=== PATIENT | female | born 1945 | race American Indian/Alaskan Native ===

== ENCOUNTER 2018-11-27 14:07 | Emergency (ER) | payer MEDICARE, MEDICAID ==
--- NOTE | 2018-11-27 18:25 | EDM.PDOCBH ---
<Christina Macias - Last Filed: 11/27/18 18:19> ED HPI GENERAL MEDICAL PROBLEM - General Chief Complaint: Behavioral/Psych Stated Complaint: MEDICAL VIA [facility] Time Seen by Provider: 11/27/18 14:20 Source of Information: Reports: Patient History Limitations: Reports: No Limitations - History of Present Illness INITIAL COMMENTS - FREE TEXT/NARRATIVE: pt was at the [facility] and she is committed there. Yesterday there was a window on second floor that was open and she was trying to get out of the window. The pt states that she has her last child who has Cancer and she wants to go home so she can be with him. She stated today that if she didn,t get to go home she was going to kill herself. The home brought her in with the police involved. The pt states that she has lost her other children to and she definitely wants to be with him Onset: Other (pt has been making threats. She felt like she was only committed for 3 monthes. ) Duration: Day(s): Location: Reports: Generalized Associated Symptoms: Reports: Other ( according to the court order she has dementia ) - Related Data Allergies Allergy/AdvReac Type Severity Reaction Status Date / Time No Known Allergies Allergy Verified 11/27/18 14:17 Home Meds: Home Meds Aspirin 81 mg PO DAILY 11/27/18 [History] Bumetanide 1 mg PO DAILY 11/27/18 [History] Ca Carbonate/Vitamin D3/Vit K [Calcium + D Soft Chewable Tab] 1 tab PO BID 11/27 [History] Carvedilol [Coreg] 3.125 mg PO BID 11/27/18 [History] Clopidogrel [Plavix] 75 mg PO DAILY 11/27/18 [History] Donepezil [Aricept] 10 mg PO DAILY 11/27/18 [History] Enalapril [Vasotec] 2.5 mg PO DAILY 11/27/18 [History] Ferrous Gluconate 324 mg PO DAILY 11/27/18 [History] Insulin Aspart [NovoLOG] 0 unit WITHMEALSANDBED 11/27/18 [History] Insulin Detemir [Levemir Flextouch] 100 unit SQ DAILY 11/27/18 [History] Isosorbide Mononitrate [Imdur] 30 mg PO DAILY 11/27/18 [History] Pantoprazole Sodium [Protonix] 40 mg PO DAILY 11/27/18 [History] Sucralfate 1 gm PO QID 11/27/18 [History] Venlafaxine HCl [Venlafaxine ER] 150 mg PO DAILY 11/27/18 [History] atorvaSTATin [Lipitor] 80 mg PO BEDTIME 11/27/18 [History] cloNIDine [Catapres-TTS 1] 1 each TD DAILY 11/27/18 [History] Past Medical History Cardiovascular History: Reports: CAD, High Cholesterol, Hypertension, [place] Respiratory History: Reports: Other (See Below) Other Respiratory History: dyspnea Gastrointestinal History: Reports: GERD Genitourinary History: Reports: Other (See Below) Other Genitourinary History: chronic kidney disease Musculoskeletal History: Reports: Osteoarthritis Neurological History: Reports: Other (See Below) Other Neuro History: cerebrovascular disease, dementia Psychiatric History: Reports: Anxiety, Depression, PTSD Endocrine/Metabolic History: Reports: Diabetes, Type II, Hypoparathyroidism Hematologic History: Reports: B12 Deficiency - Past Surgical History Cardiovascular Surgical History: Reports: Other (See Below) Other Cardiovascular Surgeries/Procedures: stents x 2. Musculoskeletal Surgical History: Reports: Other (See Below) Other Musculoskeletal Surgeries/Procedures:: knee surgery Social & Family History - Tobacco Use Smoking Status *Q: Current Every Day Smoker Years of Tobacco use: 50 Packs/Tins Daily: 0.5 - Recreational Drug Use Recreational Drug Use: No ED ROS GENERAL - Review of Systems Review Of Systems: See Below Constitutional: Reports: No Symptoms HEENT: Reports: No Symptoms Respiratory: Reports: No Symptoms Cardiovascular: Reports: No Symptoms Endocrine: Reports: No Symptoms GI/Abdominal: Reports: No Symptoms : Reports: No Symptoms Musculoskeletal: Reports: No Symptoms Skin: Reports: No Symptoms Neurological: Reports: Other (pt appears to be able to give a fairly clear history. ) Psychiatric: Reports: Anxiety, Other (pt states that she is not suicidal. ) ED EXAM, BEHAVIORAL HEALTH - Physical Exam Exam: See Below Text/Narrative:: pt is alert pt who walks well. She is able to carry on a conversation. She is very cncerned about her son who was diagnosed with Cancer. Exam Limited By: No Limitations General Appearance: Alert, No Apparent Distress Ears: Normal TMs Nose: Normal Inspection Throat/Mouth: Normal Inspection Head: Atraumatic Neck: Normal Inspection Respiratory/Chest: No Respiratory Distress Cardiovascular: Regular Rate, Rhythm GI/Abdominal: Soft, Non-Tender (Female) Exam: Deferred Rectal (Female) Exam: Deferred Back Exam: Normal Inspection Extremities: Normal Inspection Neurological: Alert, Other (pt is able to give a good history. ) Psychiatric: Alert, Normal Cognition, Other (pt did try to leave. He states she is trying to get to [place]. ) COURSE, BEHAVIORAL HEALTH COMP - Course Vital Signs: Last Vital Signs Temp 36.9 C 11/27/18 14:11 Pulse 77 11/27/18 14:11 Resp 22 H 11/27/18 14:11 BP 113/56 L 11/27/18 14:11 Pulse Ox 100 11/27/18 14:11 Orders, Labs, Meds: Laboratory Tests 11/27/18 11/27/18 11/27/18 Range/Units 16:27 16:27 16:27 WBC 6.7 (4.5-11.0) K/uL RBC 4.30 (3.30-5.50) M/uL Hgb 11.2 L (12.0-15.0) g/dL Hct 36.9 (36.0-48.0) % MCV 86 (80-98) fL MCH 26 L (27-31) pg MCHC 30 L (32-36) % Plt Count 297 (150-400) K/uL Neut % (Auto) 61 (36-66) % Lymph % (Auto) 30 (24-44) % [place]row % (Auto) 8 H (2-6) % Eos % (Auto) 2 (2-4) % Baso % (Auto) 0 (0-1) % Sodium 139 L (140-148) mmol/L Potassium 4.4 (3.6-5.2) mmol/L Chloride 102 (100-108) mmol/L Carbon Dioxide 28 (21-32) mmol/L Anion Gap 13.4 (5.0-14.0) mmol/L BUN 43 H (7-18) mg/dL Creatinine 1.8 H (0.6-1.0) mg/dL Est Cr Clr Drug Dosing 23.37 mL/min Estimated GFR (MDRD) 28 L (>60) Glucose 215 H (74-106) mg/dL Calcium 8.9 (8.5-10.1) mg/dL Total Bilirubin 0.2 (0.2-1.0) mg/dL AST 26 (15-37) U/L ALT 39 (12-78) U/L Alkaline Phosphatase 133 H (46-116) U/L Total Protein 6.6 (6.4-8.2) g/dL Albumin 3.3 L (3.4-5.0) g/dL Globulin 3.3 (2.3-3.5) g/dL Albumin/Globulin Ratio 1.0 L (1.2-2.2) Urine Color Yellow Urine Appearance Clear Urine pH 6.0 (4.5-8.0) Ur Specific [place] 1.015 (1.008-1.030) Urine Protein Negative (NEGATIVE) mg/dL Urine Glucose (UA) Normal (NEGATIVE) mg/dL Urine Ketones Negative (NEGATIVE) mg/dL Urine Occult Blood Negative (NEGATIVE) Urine Nitrite Negative (NEGATIVE) Urine Bilirubin Negative (NEGATIVE) Urine Urobilinogen Normal (NORMAL) mg/dL Ur Leukocyte Esterase Negative (NEGATIVE) Urine RBC Not seen (0-5) Urine WBC 0-5 (0-5) Ur Epithelial Cells Rare Amorphous Sediment Not seen Urine Bacteria Few Urine Mucus Not seen Medical Clearance: 11/27/18 18:30 pt has a creatnine of 1.8 and a low GFR. She has a clear urine. Her bs is 215. Departure - Departure Disposition: Home, Self-Care 01 Clinical Impression: Medical non-compliance - Discharge Information Referrals: PCP,None [Primary Care Provider] - Forms: ED Department Discharge Additional Instructions: Continue current cares. Needs to get connected with a elementary school social worker. Crisis will follow through with this case. <Cosme Palmer G - Last Filed: 11/27/18 19:35> COURSE, BEHAVIORAL HEALTH COMP - Course Discharge vs Psych Eval/Treatment:: 11/27/18 19:33 Crisis feels patient is not a risk for suicide. [facility] to return [facility] the [facility]. Departure - Departure Time of Disposition: 19:33 Condition: Good - Discharge Information *PRESCRIPTION DRUG MONITORING PROGRAM REVIEWED*: No *COPY OF PRESCRIPTION DRUG MONITORING REPORT IN PATIENT LAY: No
== END 2018-11-27 20:50 | disposition home or self-care (01) ==
LOC: JP.ED 14:07
DX: Z91.19 Patient's noncompliance with other medical treatment and regimen (principal); E78.00 Pure hypercholesterolemia, unspecified; I25.10 Atherosclerotic heart disease of native coronary artery without angina pectoris; I25.2 Old myocardial infarction; K21.9 Gastro-esophageal reflux disease without esophagitis; E11.9 Type 2 diabetes mellitus without complications; F41.9 Anxiety disorder, unspecified; F32.9 Major depressive disorder, single episode, unspecified; F17.210 Nicotine dependence, cigarettes, uncomplicated; Z79.82 Long term (current) use of aspirin; Z79.899 Other long term (current) drug therapy; Z79.4 Long term (current) use of insulin
CPT/HCPCS: 36415; 80053; 81001; 85025; 99285

== ENCOUNTER 2018-11-28 18:17 | Emergency (ER) | payer MEDICARE, MEDICAID ==
--- NOTE | 2018-11-28 19:00 | EDM.PDOCBH ---
ED HPI GENERAL MEDICAL PROBLEM - General Chief Complaint: Behavioral/Psych Stated Complaint: EVAL Time Seen by Provider: 11/28/18 18:39 Source of Information: Reports: Patient, Old Records, RN Notes Reviewed History Limitations: Reports: No Limitations - History of Present Illness INITIAL COMMENTS - FREE TEXT/NARRATIVE: 73-year-old female presents to the emergency department today for evaluation, she was in the emergency department last night valuated by Dr. Macias for suicidal thoughts please see her note for details. Today she had difficulty at the long term became very aggressive she is on a court order from [facility] her main issue is that the last of her surviving children has recently been diagnosed with cancer and she would like to go spend time with them. [facility] has accepted her she is transported to the emergency department for evaluation and transport. At this time she has no complaints and after a discussion with her she is willing to go to this facility for further evaluation - Related Data Allergies Allergy/AdvReac Type Severity Reaction Status Date / Time No Known Allergies Allergy Verified 11/27/18 14:17 Home Meds: Home Meds Aspirin 81 mg PO DAILY 11/27/18 [History] Bumetanide 1 mg PO DAILY 11/27/18 [History] Ca Carbonate/Vitamin D3/Vit K [Calcium + D Soft Chewable Tab] 1 tab PO BID 11/27 [History] Carvedilol [Coreg] 3.125 mg PO BID 11/27/18 [History] Clopidogrel [Plavix] 75 mg PO DAILY 11/27/18 [History] Donepezil [Aricept] 10 mg PO DAILY 11/27/18 [History] Enalapril [Vasotec] 2.5 mg PO DAILY 11/27/18 [History] Ferrous Gluconate 324 mg PO DAILY 11/27/18 [History] Insulin Aspart [NovoLOG] 0 unit WITHMEALSANDBED 11/27/18 [History] Insulin Detemir [Levemir Flextouch] 100 unit SQ DAILY 11/27/18 [History] Isosorbide Mononitrate [Imdur] 30 mg PO DAILY 11/27/18 [History] Pantoprazole Sodium [Protonix] 40 mg PO DAILY 11/27/18 [History] Sucralfate 1 gm PO QID 11/27/18 [History] Venlafaxine HCl [Venlafaxine ER] 150 mg PO DAILY 11/27/18 [History] atorvaSTATin [Lipitor] 80 mg PO BEDTIME 11/27/18 [History] cloNIDine [Catapres-TTS 1] 1 each TD DAILY 11/27/18 [History] Past Medical History Cardiovascular History: Reports: CAD, High Cholesterol, Hypertension, [place] Respiratory History: Reports: Other (See Below) Other Respiratory History: dyspnea Gastrointestinal History: Reports: GERD Genitourinary History: Reports: Other (See Below) Other Genitourinary History: chronic kidney disease Musculoskeletal History: Reports: Osteoarthritis Neurological History: Reports: Other (See Below) Other Neuro History: cerebrovascular disease, dementia Psychiatric History: Reports: Anxiety, Depression, PTSD Endocrine/Metabolic History: Reports: Diabetes, Type II, Hypoparathyroidism Hematologic History: Reports: B12 Deficiency - Past Surgical History Cardiovascular Surgical History: Reports: Other (See Below) Other Cardiovascular Surgeries/Procedures: stents x 2. Musculoskeletal Surgical History: Reports: Other (See Below) Other Musculoskeletal Surgeries/Procedures:: knee surgery Social & Family History - Tobacco Use Smoking Status *Q: Current Every Day Smoker ED ROS GENERAL - Review of Systems Review Of Systems: See Below Constitutional: Reports: No Symptoms HEENT: Reports: No Symptoms Respiratory: Reports: No Symptoms Cardiovascular: Reports: No Symptoms GI/Abdominal: Reports: No Symptoms : Reports: No Symptoms ED EXAM, BEHAVIORAL HEALTH - Physical Exam Exam: See Below Exam Limited By: No Limitations General Appearance: Alert, WD/WN, No Apparent Distress Respiratory/Chest: No Respiratory Distress, No Accessory Muscle Use, Chest Non- Tender, Rhonchi Cardiovascular: Regular Rate, Rhythm, No Murmur Departure - Departure Time of Disposition: 19:00 Disposition: DC/Tfer to Psych Hosp/Unit 65 Condition: Poor Clinical Impression: Aggressive behavior - Discharge Information Referrals: PCP,None [Primary Care Provider] - - Assessment/Plan Plan: Assessment Acuity = acute Site and laterality = aggressive behavior complicated in a patient with history of dementia Etiology = unknown etiology Manifestations = none Location of injury = Home Lab values = no lab work done today please see lab work from yesterday for details Plan She'll be transported via EMS ground to [facility] This note was dictated using [employer] voice recognition software please call with any questions on syntax or grammar.
== END 2018-11-28 20:50 ==
LOC: JP.ED 18:17
DX: R45.6 Violent behavior (principal); F03.90 Unspecified dementia, unspecified severity, without behavioral disturbance, psychotic disturbance, mood disturbance, and anxiety; I12.9 Hypertensive chronic kidney disease with stage 1 through stage 4 chronic kidney disease, or unspecified chronic kidney disease; E11.22 Type 2 diabetes mellitus with diabetic chronic kidney disease; N18.9 Chronic kidney disease, unspecified; E78.00 Pure hypercholesterolemia, unspecified; I25.10 Atherosclerotic heart disease of native coronary artery without angina pectoris; K21.9 Gastro-esophageal reflux disease without esophagitis; F41.9 Anxiety disorder, unspecified; F32.9 Major depressive disorder, single episode, unspecified; E20.9 Hypoparathyroidism, unspecified; Z79.4 Long term (current) use of insulin; Z79.899 Other long term (current) drug therapy; Z79.82 Long term (current) use of aspirin
CPT/HCPCS: 99285

== ENCOUNTER 2019-03-25 15:56 | Emergency (ER) | payer MEDICARE, MEDICAID ==
[2019-03-25] MEDS ORDERED: Nicotine 21 MG/24 Hr Patch TRDERM ONE (16:57)
--- NOTE | 2019-03-25 17:00 | EDM.PDOCBH ---
<OfficerJono - Last Filed: 03/25/19 16:57> ED HPI GENERAL MEDICAL PROBLEM - General Chief Complaint: Behavioral/Psych Stated Complaint: PSYCH EVAL PER LAW ENFORCEMENT Time Seen by Provider: 03/25/19 16:56 Source of Information: Reports: Patient, Police, RN Notes Reviewed History Limitations: Reports: No Limitations - History of Present Illness INITIAL COMMENTS - FREE TEXT/NARRATIVE: 74-year-old female presents emergency department today for psychiatric evaluation. She is court ordered to be in a memory care unit as she does have a moments of clarity followed by periods of aggressive behavior secondary to her dementia. She had an event today where she became aggressive with the staff was throwing silverware and dishes around had taken a butter knife and said she was going to harm herself. She is calm and cooperative at this time she admits that she was mad because she wanted to go home and visit her son she did visit with her son yesterday however because she is court ordered she cannot leave the facility and she became very upset. At this time the [facility] care facility will not take her back because she has displayed aggression towards the staff. denies Pain Score (Numeric/FACES): 0 - Related Data Allergies Allergy/AdvReac Type Severity Reaction Status Date / Time No Known Allergies Allergy Verified 03/25/19 16:22 Home Meds: Home Meds Aspirin 81 mg PO 0800 11/27/18 [History] atorvaSTATin [Lipitor] 80 mg PO 199911/27/18 [History] Citalopram [Citalopram HBr] 30 mg PO 0803/25/19 [History] Gabapentin [Neurontin] 300 mg PO 0800,1400,199903/25/19 [History] Carman Carbonate 600 mg PO 199903/25/19 [History] Meloxicam [Mobic] 7.5 mg PO 0800 03/25/19 [History] Mirtazapine [Remeron] 30 mg PO 199903/25/19 [History] Ranitidine HCl [Ranitidine] 150 mg PO 0800,199903/25/19 [History] chlorproMAZINE HCl [Chlorpromazine HCl] 50 mg PO 199903/25/19 [History] glipiZIDE [Glipizide ER] 5 mg PO 0800 03/25/19 [History] metFORMIN [Glucophage] 500 mg PO BIDMEALS 03/25/19 [History] traZODone 100 mg PO 199903/25/19 [History] Past Medical History Cardiovascular History: Reports: CAD, High Cholesterol, Hypertension, [place] Respiratory History: Reports: Other (See Below) Other Respiratory History: dyspnea Gastrointestinal History: Reports: GERD Genitourinary History: Reports: Other (See Below) Other Genitourinary History: chronic kidney disease [employer] History: Reports: Musculoskeletal History: Reports: Osteoarthritis Neurological History: Reports: Other (See Below) Other Neuro History: cerebrovascular disease, dementia Psychiatric History: Reports: Anxiety, Depression, PTSD Endocrine/Metabolic History: Reports: Diabetes, Type II, Hypoparathyroidism Hematologic History: Reports: B12 Deficiency - Infectious Disease History Infectious Disease History: Reports: Chicken Pox - Past Surgical History Cardiovascular Surgical History: Reports: Other (See Below) Other Cardiovascular Surgeries/Procedures: stents x 2. Musculoskeletal Surgical History: Reports: Other (See Below) Other Musculoskeletal Surgeries/Procedures:: knee surgery Social & Family History - Tobacco Use Smoking Status *Q: Current Every Day Smoker Years of Tobacco use: 65 Packs/Tins Daily: 0.2 Used Tobacco, but Quit: No Second Hand Smoke Exposure: Yes - Caffeine Use Caffeine Use: Reports: Coffee, Soda - Recreational Drug Use Recreational Drug Use: No ED ROS GENERAL - Review of Systems Review Of Systems: See Below Constitutional: Reports: No Symptoms HEENT: Reports: No Symptoms Respiratory: Reports: No Symptoms Cardiovascular: Reports: No Symptoms GI/Abdominal: Reports: No Symptoms : Reports: No Symptoms ED EXAM, BEHAVIORAL HEALTH - Physical Exam Exam: See Below Text/Narrative:: Orientated to person place and time, appropriately dressed, well groomed, memory to recent and remote events intact, good attention and concentration, speech is of adequate rate tone and volume, good fund of knowledge, language is appropriate, Mood and affect are euthymic, no pressured thoughts, denies suicidal ideation, denies homicidal ideation, no hallucinations visual or auditory, poor judgment, poor insight Exam Limited By: No Limitations General Appearance: Alert, WD/WN, No Apparent Distress Respiratory/Chest: No Respiratory Distress, Lungs Clear, Normal Breath Sounds, No Accessory Muscle Use, Chest Non-Tender GI/Abdominal: Non-Tender, No Abnormal Bruit COURSE, BEHAVIORAL HEALTH COMP - Course Vital Signs: Last Vital Signs Temp 35.7 C 09/20/19 11:20 Pulse 79 03/27/19 11:20 Resp 20 03/27/19 11:20 BP 146/75 H 03/27/19 11:20 Pulse Ox 97 03/27/19 11:20 Orders, Labs, Meds: Active Orders 24 hr Category Date Time Status Communication Order [RC] ROUTINE Care 03/26/19 20:18 Active POC Glucose [Blood Glucose Check, Bedside] [] ONETIME Care 03/26/19 20:17 Active Calcium Carbonate [Tums] Med 03/26/19 21:08 Active 500 mg PO Q2H PRN Carvedilol [Coreg] Med 03/26/19 21:15 Active 3.125 mg PO BID DULoxetine [Cymbalta] Med 03/27/19 21:00 Active 20 mg PO BEDTIME Donepezil [Aricept] Med 03/27/19 21:00 Active 10 mg PO BEDTIME Mirtazapine [Remeron] Med 03/26/19 21:00 Active 30 mg PO BEDTIME Nicotine [Habitrol] Med 03/26/19 20:00 Active 21 mg TRDERM DAILY Ranitidine [Zantac] Med 03/26/19 21:00 Active 150 mg PO BEDTIME Sucralfate [Carafate] Med 03/26/19 21:14 Active 1 gm PO QIDACANDBED metFORMIN [Glucophage] Med 03/26/19 20:00 Active 500 mg PO BIDMEALS Medication Orders Calcium Carbonate/Glycine (Tums) 500 mg PO Q2H PRN PRN Reason: Indigestion Carvedilol (Coreg) 3.125 mg PO BID [facility] Last Admin: 03/27/19 11:16 Dose: 3.125 mg Admin: 03/26/19 21:38 Dose: 3.125 mg Donepezil HCl (Aricept) 10 mg PO BEDTIME ALBA Duloxetine HCl (Cymbalta) 20 mg PO BEDTIME [facility] Metformin HCl (Glucophage) 500 mg PO BIDMEALS [facility] Last Admin: 03/27/19 11:16 Dose: 500 mg Admin: 03/26/19 21:28 Dose: 500 mg Mirtazapine (Remeron) 30 mg PO BEDTIME [facility] Last Admin: 03/26/19 21:31 Dose: 30 mg Nicotine (Habitrol) 21 mg TRDERM DAILY [facility] Last Admin: 03/27/19 11:19 Dose: 21 mg Admin: 03/26/19 21:36 Dose: 21 mg Ranitidine HCl (Zantac) 150 mg PO BEDTIME [facility] Last Admin: 03/26/19 21:50 Dose: 150 mg Sucralfate (Carafate) 1 gm PO QIDACANDBED [facility] Last Admin: 03/27/19 11:19 Dose: 1 gm Admin: 03/27/19 11:19 Dose: Not Given Admin: 03/26/19 21:40 Dose: 1 gm Laboratory Tests 03/25/19 Range/Units 16:57 Urine Color Yellow (YELLOW) Urine Appearance Clear (CLEAR) Urine pH 6.5 (5.0-8.0) Ur Specific [place] 1.010 (1.008-1.030) Urine Protein Negative (NEGATIVE) mg/dL Urine Glucose (UA) Negative (NEGATIVE) mg/dL Urine Ketones Negative (NEGATIVE) mg/dL Urine Occult Blood Trace-intact H (NEGATIVE) Urine Nitrite Negative (NEGATIVE) Urine Bilirubin Negative (NEGATIVE) Urine Urobilinogen 0.2 (0.2-1.0) EU/dL Ur Leukocyte Esterase Negative (NEGATIVE) Urine RBC 0-5 (0-5) Urine WBC 0-5 (0-5) Ur Epithelial Cells Rare Amorphous Sediment Not seen Urine Bacteria Moderate Urine Mucus Not seen Medications Generic Name Dose Route Start Last Admin Trade Name Freq PRN Reason Stop Dose Admin Calcium Carbonate/Glycine 500 mg 03/26/19 21:08 Tums PO Q2H PRN Indigestion Carvedilol 3.125 mg 03/26/19 21:15 03/27/19 11:16 Coreg PO 3.125 mg BID [facility] Administration Donepezil HCl 10 mg 03/27/19 21:00 Aricept PO BEDTIME ALBA Duloxetine HCl 20 mg 03/27/19 21:00 Cymbalta PO BEDTIME ALBA Metformin HCl 500 mg 03/26/19 20:00 03/27/19 11:16 Glucophage PO 500 mg BIDMEALS ALBA Administration Mirtazapine 30 mg 03/26/19 21:00 03/26/19 21:31 Remeron PO 30 mg BEDTIME ALBA Administration Nicotine 21 mg 03/26/19 20:00 03/27/19 11:19 Habitrol TRDERM 21 mg DAILY ALBA Administration Ranitidine HCl 150 mg 03/26/19 21:00 03/26/19 21:50 Zantac PO 150 mg BEDTIME ALBA Administration Sucralfate 1 gm 03/26/19 21:14 03/27/19 11:19 Carafate PO 1 gm QIDACANDBED ALBA Administration Discontinued Medications Generic Name Dose Route Start Last Admin Trade Name Devanq PRN Reason Stop Dose Admin Aspirin 81 mg 03/26/19 08:45 03/26/19 12:20 Halfprin PO 03/26/19 08:46 81 mg ONETIME ONE Administration Atorvastatin Calcium 80 mg 03/26/19 19:54 03/26/19 21:48 Lipitor PO 03/26/19 19:55 Not Given ONETIME ONE Atorvastatin Calcium 80 mg 03/26/19 21:00 03/26/19 21:48 Lipitor PO 03/26/19 21:01 80 mg ONETIME ONE Administration Chlorpromazine HCl 50 mg 03/26/19 19:52 03/26/19 21:30 Thorazine PO 03/26/19 19:53 50 mg ONETIME ONE Administration Citalopram Hydrobromide 30 mg 03/26/19 09:45 03/26/19 12:21 Celexa PO 03/26/19 09:46 30 mg ONETIME ONE Administration Gabapentin 300 mg 03/25/19 22:45 03/25/19 23:27 Neurontin PO 03/25/19 22:46 300 mg ONETIME ONE Administration Gabapentin 300 mg 03/26/19 08:44 03/26/19 12:21 Neurontin PO 03/26/19 08:45 300 mg ONETIME ONE Administration Gabapentin 300 mg 03/26/19 19:51 03/26/19 21:32 Neurontin PO 03/26/19 19:52 300 mg ONETIME ONE Administration Glipizide 5 mg 03/26/19 08:44 03/26/19 12:20 Glucotrol Xl PO 03/26/19 08:45 5 mg ONETIME ONE Administration Carman Carbonate 600 mg 03/25/19 22:46 03/25/19 23:26 Carman Carbonate PO 03/25/19 22:47 600 mg QID ONE Administration Carman Carbonate 600 mg 03/26/19 19:55 03/26/19 21:35 Eskalith Cr PO 03/26/19 19:56 600 mg NOW ONE Administration Carman Carbonate Confirm 03/26/19 21:06 Lithobid Administered 03/26/19 21:07 Dose 600 mg .ROUTE .STK-MED ONE Meloxicam 7.5 mg 03/26/19 08:43 03/26/19 12:21 Mobic PO 03/26/19 08:44 7.5 mg ONETIME ONE Administration Metformin HCl 500 mg 03/26/19 08:42 03/26/19 12:20 Glucophage PO 03/26/19 08:43 500 mg ONETIME ONE Administration Mirtazapine 30 mg 03/25/19 22:48 03/25/19 23:26 Remeron PO 03/25/19 22:49 30 mg ONETIME ONE Administration Nicotine 21 mg 03/25/19 16:57 03/25/19 17:34 Habitrol TRDERM 03/25/19 16:58 21 mg ONETIME ONE Administration Olanzapine 2.5 mg 03/26/19 21:08 03/26/19 21:41 Zyprexa PO 03/26/19 21:09 2.5 mg BID ONE Administration Ranitidine HCl 150 mg 03/25/19 21:00 03/25/19 23:26 Zantac PO 03/25/19 21:01 150 mg BEDTIME ONE Administration Ranitidine HCl Confirm 03/25/19 23:24 03/25/19 23:27 Zantac Administered 03/25/19 23:25 Not Given Dose 150 mg .ROUTE .STK-MED ONE Ranitidine HCl 150 mg 03/26/19 08:34 03/26/19 12:19 Zantac PO 03/26/19 08:35 150 mg ONETIME ONE Administration Trazodone HCl 50 mg 03/26/19 19:46 03/26/19 21:34 Trazodone PO 03/26/19 19:47 50 mg ONETIME ONE Administration Trazodone HCl 50 mg 03/26/19 21:00 03/26/19 21:47 Trazodone PO 03/26/19 21:01 Not Given ONETIME ONE Departure - Departure Disposition: DC/Tfer to SNF 03 Clinical Impression: Dementia - Discharge Information Referrals: PCP,None [Primary Care Provider] - Forms: ED Department Discharge Additional Instructions: Discharge medications: Aspiri 81 mg each morning. Atorvastatin 80 mg each pm Bumex 1 mg each morning Calcium carbonate 500 mg twice daily Carvedil 3.125 mg at 8 AM and 5 PM Plavix 75 mg each morning Donepezil 10 mg each p.m. Duloxetine 20 mg at 5 PM Enalapril 2.5 mg each morning Ferrous gluconate 325 mg each morning Gabapentin 250 mg per 5 mL solution, give 6 mL at 8 AM noon and 5 PM Isosorbide mononitrate extended release 30 mg The neuroma was Olanzapine 2.5 mg at noon and 8 PM Pantoprazole 40 mg each morning at 7 AM Carafate 1 g 8 AM noon 4 PM and 8 PM Vitamin D to 1.25 mg 8 AM each Saturday Levemir 32 units subcutaneous at 8 AM and 8 PM NovoLog sliding scale at 7 AM 11 AM 4 PM and 8PM as follows 151-200:2 units 201-250:4 units 251-300:6 units 301-350:8 units 351-400:10 units Greater than 400 call the doctor PRN Meds: Ativan oral solution 1 mg/mL given 0.5 mL orally every 8 hours as needed for anxiety or agitation Gabapentin 250 mg per 5 mL solution give 5 mL every 2 hours when necessary pain and restlessness or anxiety Zofran ODT 4 mg 1 sublingual once daily when necessary nausea Trazodone 50 mg at bedtime for insomnia Kody Groves M.D. [facility] emergency department [facility] <Kody Groves L - Last Filed: 03/27/19 16:38> COURSE, BEHAVIORAL HEALTH COMP - Course Re-Assessment/Re-Exam: I examined this patient several times during the day she seems quite pleasant she's been up walking around the emergency department she's not expressed any kind of behavioral problems. I gave her all of her medications this morning. So for we've been unable to find placement for her. I'll be turning her over to Dr. Fairbanks at this time Medical Clearance: 03/27/19 16:04 This patient is medically cleared. She will be admitted to [facility] in [facility]. Departure - Departure Time of Disposition: 16:05
[2019-03-25] MEDS ORDERED: Gabapentin 300 MG Cap PO ONE (22:45)
[2019-03-25] MEDS ORDERED: Mirtazapine 15 MG Tab PO ONE (22:48)
[2019-03-26] MEDS ORDERED: metFORMIN 500 MG Tab PO ONE (08:42)
[2019-03-26] MEDS ORDERED: Meloxicam 7.5 MG Tab PO ONE (08:43)
[2019-03-26] MEDS ORDERED: glipiZIDE 5 MG Tab.ER PO ONE (08:44)
[2019-03-26] MEDS ORDERED: Gabapentin 300 MG Cap PO ONE ×2 (08:44→19:51)
[2019-03-26] MEDS ORDERED: Citalopram 20 MG Tab PO ONE (08:45)
[2019-03-26] MEDS ORDERED: Aspirin 81 MG Tab.EC PO ONE (08:45)
[2019-03-26] MEDS ORDERED: Citalopram 10 MG Tab PO ONE (09:45)
[2019-03-26] MEDS ORDERED: traZODone 50 MG Tab PO ONE ×2 (19:46→21:00)
[2019-03-26] MEDS ORDERED: chlorproMAZINE 25 MG Tab PO ONE (19:52)
[2019-03-26] MEDS ORDERED: atorvaSTATin 20 MG Tab PO ONE ×3 (19:54→21:00)
[2019-03-26] MEDS ORDERED: Lithium Carbonate 450 MG Tab.ER PO ONE (19:55)
--- NOTE | 2019-03-26 20:02 | PCM.SN ---
- Free Text/Narrative Note: 03-26-2019 @ 1955: Nursing staff request 8pm medications to be ordered s: no concerns O: vital signs stable TPR 36.4-92-16 B/P 141/65 O2 sat 99% of room air, pleasant no acute distress noted. A: stable P: ordered evening medications, Trazadone 100mg po, Zantac 150mg po, Remeron 30mg po, Nicotine patch 21mcg, Metformin 500mg, [place] 600mg po, Gabapentin 300mg po, Chlorpromazine 50 mg, and Lipitor 80 mg po continue present plan of care.
[2019-03-26] MEDS ORDERED: Mirtazapine 15 MG Tab PO SCH (21:00)
[2019-03-26] MEDS ORDERED: Lithium Carbonate 300 MG Tab.ER ONE (21:06)
[2019-03-26] MEDS ORDERED: Calcium Carbonate 500 MG Tab.Chew PO PRN (21:08)
[2019-03-26] MEDS ORDERED: OLANZapine 5 MG Tab PO ONE (21:08)
[2019-03-26] MEDS: metFORMIN 500 MG Tab PO SCH (21:28)
[2019-03-26] MEDS: Nicotine 21 MG/24 Hr Patch TRDERM SCH (21:36)
[2019-03-26] MEDS: Carvedilol 3.125 MG Tab PO SCH (21:38)
[2019-03-26] MEDS: Sucralfate 1 GM Tab PO SCH (21:40)
[2019-03-27] MEDS: metFORMIN 500 MG Tab PO SCH (11:16)
[2019-03-27] MEDS: Carvedilol 3.125 MG Tab PO SCH (11:16)
[2019-03-27] MEDS: Sucralfate 1 GM Tab PO SCH ×2 (11:19)
[2019-03-27] MEDS: Nicotine 21 MG/24 Hr Patch TRDERM SCH (11:19)
[2019-03-27] MEDS ORDERED: DULoxetine 20 MG Cap PO SCH (21:00)
[2019-03-27] MEDS ORDERED: Donepezil 10 MG Tab PO SCH (21:00)
== END 2019-03-27 17:00 ==
LOC: JP.ED 15:56
DX: F03.90 Unspecified dementia, unspecified severity, without behavioral disturbance, psychotic disturbance, mood disturbance, and anxiety (principal); I12.9 Hypertensive chronic kidney disease with stage 1 through stage 4 chronic kidney disease, or unspecified chronic kidney disease; E11.22 Type 2 diabetes mellitus with diabetic chronic kidney disease; N18.9 Chronic kidney disease, unspecified; I25.2 Old myocardial infarction; E78.00 Pure hypercholesterolemia, unspecified; K21.9 Gastro-esophageal reflux disease without esophagitis; F41.9 Anxiety disorder, unspecified; F32.9 Major depressive disorder, single episode, unspecified; F17.210 Nicotine dependence, cigarettes, uncomplicated; Z79.82 Long term (current) use of aspirin; Z79.899 Other long term (current) drug therapy; Z79.84 Long term (current) use of oral hypoglycemic drugs
CPT/HCPCS: 81001; 99284; A9270; 99283